=== PATIENT | female | born 1945 | race Caucasian/White ===

== ENCOUNTER 2016-12-14 11:41 | Emergency (ER) | payer MEDICARE, OTHER ==
[2016-12-14 11:45] VITALS: BP 164/71; PULSE 88; RESP 20; TEMP 99.1; O2SAT 99; BMI 44.9
--- NOTE | 2016-12-14 13:52 | US ---
PROCEDURE: Bilateral lower extremity venous duplex Doppler. HISTORY: b/l leg cramping/swelling COMPARISON: None available. TECHNIQUE: Bilateral common femoral, superficial femoral, popliteal and posterior tibial veins were evaluated. Flow was assessed with color Doppler, compressibility, assessment of phasic flow and augmentation response. FINDINGS: COMMON FEMORAL VEIN: Right CFV: Unremarkable. Left CFV: Unremarkable. SUPERFICIAL FEMORAL VEIN: Right SFV: Unremarkable. Left SFV: Unremarkable. POPLITEAL VEIN: Right Popliteal: Unremarkable. Left Popliteal: Unremarkable. POSTERIOR TIBIAL VEIN: Right PTV: Unremarkable. Left PTV: Unremarkable. OTHER FINDINGS: None. IMPRESSION: No evidence of deep venous thrombosis.
--- NOTE | 2016-12-14 13:59 | ED PDOC ---
Lower Extremity Pain/Injury Time Seen by Provider: 12/14/16 11:52 Chief Complaint (Nursing): Lower Extremity Problem/Injury Chief Complaint (Provider): feet heavy Additional Complaint(s): 71yo F in ED for eval of b/l feet heaviness x 1month states that she didn't tell her doctor because the ER is faster. denies SOB, dizziness, CP, cramping, pain to legs swelling to leg, discoloration to her leg. admits to hx of DM and was evaluated in the past for neuropathy - Risk Factors DVT Risk Factors: Pos: None Past Medical History Reviewed: Historical Data, Nursing Documentation, Vital Signs Vital Signs: Last Vital Signs Temp 99.1 F 12/14/16 11:44 Pulse 88 12/14/16 11:44 Resp 20 12/14/16 11:44 BP 164/71 H 12/14/16 11:44 Pulse Ox 99 12/14/16 11:44 - Medical History PMH: HTN, Hypercholesterolemia - Family History Family History: States: No Known Family Hx - Allergies Allergies/Adverse Reactions: Allergies Allergy/AdvReac Type Severity Reaction Status Date / Time No Known Allergies Allergy Verified 12/14/16 12:26 Wells Criteria for PE - Wells Criteria for Pulmonary Embolism Clinical Signs and Symptoms of DVT: No P.E is #1 Diagnosis, or Equally Likely: No Heart Rate >100: No Immobilization at least 3 days;Surgery previous 4 weeks: No Previous, objectively diagnosed PE or DVT: No Hemoptysis: No Malignancy w/treatment within 6 months, or palliative: No Total Score: 0 Review of Systems ROS Statement: Except As Marked, All Systems Reviewed And Found Negative Constitutional: Negative for: Fever, Chills Cardiovascular: Negative for: Chest Pain, Palpitations Musculoskeletal: Positive for: Leg Pain Physical Exam - Reviewed Nursing Documentation Reviewed: Yes Vital Signs Reviewed: Yes - Physical Exam Appears: Positive for: Well, Non-toxic, No Acute Distress Skin: Positive for: Normal Color, Warm, DRY Cardiovascular/Chest: Positive for: Regular Rate, Rhythm Respiratory: Positive for: CNT, Normal Breath Sounds Extremity: Positive for: Normal ROM, Other (normal sensation. ). Negative for: Tenderness, Pedal Edema, Calf Tenderness, Swelling Neurologic/Psych: Positive for: Alert, Oriented - ECG O2 Sat by Pulse Oximetry: 99 - CT Scan/US US Other Rad Studies (CT/US): Radiology Report Reviewed (negative for DVT) Medical Decision Making Medical Decision Making: pt with negative US-pt advised to have pmd evaluate for neuropathy and consider gabapentin. pt understands. d.c with stable vS and well appearing. Disposition - Clinical Impression Clinical Impression: Leg heaviness - Patient ED Disposition Is Patient to be Admitted: No Counseled Patient/Family Regarding: Studies Performed, Diagnosis, Need For Followup - Disposition Disposition: Routine/Home Disposition Time: 14:05 Condition: STABLE Instructions: Gabapentin (By mouth)
== END 2016-12-14 14:24 | disposition home or self-care (01) ==
LOC: H.ER 11:41
DX: R29.898 Other symptoms and signs involving the musculoskeletal system (principal); E11.9 Type 2 diabetes mellitus without complications

== ENCOUNTER 2017-01-15 11:48 | Observation (INO) | payer MEDICARE, OTHER ==
[2017-01-15 11:49] VITALS: BMI 44.9
--- NOTE | 2017-01-15 13:02 | RAD ---
PROCEDURE: CHEST RADIOGRAPH, 1 VIEW HISTORY: abnormal ekg COMPARISON: None available. FINDINGS: LUNGS: Clear. PLEURA: No pneumothorax or pleural fluid seen. CARDIOVASCULAR: Normal. OSSEOUS STRUCTURES: No significant abnormalities. VISUALIZED UPPER ABDOMEN: Normal. OTHER FINDINGS: None. IMPRESSION: No active disease.
[2017-01-15 13:27] LABS: BASO # 0.1 K/uL (0.0-0.2); EOS # 0.2 K/uL (0.0-0.7); HEMATOCRIT 35.9 % (34.0-47.0); LYMPH # 3.5 K/uL (1.0-4.3); LYMPH % 37.1 % (20.0-40.0); MEAN CELL VOLUME 82.4 fl (81.0-99.0); MEAN CORPUSCULAR HEMOGLOBIN 27.1 pg (27.0-31.0); MEAN CORPUSCULAR HGB CONC 32.9 g/dL (33.0-37.0); MEAN PLATELET VOLUME 8.2 fl (7.2-11.7); MONO # 0.6 K/uL (0.0-0.8); MONO % 5.9 % (0.0-10.0); NEUT # 5.1 K/uL (1.8-7.0); NRBC % 0.1 % (0.0-0.0); RED CELL DISTRIBUTION WIDTH 13.5 % (11.5-14.5); WHITE BLOOD COUNT 9.5 K/uL (4.8-10.8)
[2017-01-15 13:33] LABS: PARTIAL THROMBOPLASTIN TIME 33.1 Seconds (25.6-37.1)
[2017-01-15 13:35] LABS: BLOOD UREA NITROGEN 13 mg/dl (7-17); CALCIUM 9.2 mg/dL (8.4-10.2); CARBON DIOXIDE 27 mmol/L (22-30); CHLORIDE 104 mmol/L (98-107); GFR AFRICAN-AMERICAN > 60; GLUCOSE,RANDOM 133 mg/dL (65-105); POTASSIUM 3.2 MMOL/L (3.6-5.0); SODIUM 143 mmol/l (132-148)
[2017-01-15 14:05] LABS: THYROID STIMULATING HORMONE 2.15 mIU/ML (0.46-4.68)
--- NOTE | 2017-01-15 14:31 | ED PDOC ---
HPI: General Adult Time Seen by Provider: 01/15/17 12:00 Chief Complaint (Nursing): Palpitations Chief Complaint (Provider): Abnormal labs History Per: Patient History/Exam Limitations: no limitations Onset/Duration Of Symptoms: Mins Additional Complaint(s): Maylin Mar is a 71 year old female, with a past medical history of HTN, diabetes, and hypercholesterolemia, who was sent to the ED by staff during a scheduled colonoscopy prior to arrival. Patient was on monitor having a colonoscopy when they noticed to have irregular rate on monitor so she was sent here by staff. She denies any complaints early on and currently. She denies any leg swelling, cough, fever, nausea, vomit, diarrhea, chest pain, shortness of breath, or palpitations in the past and currently. No further medical complaints. PMD: Jean Carlos Mejia Past Medical History Reviewed: Historical Data, Nursing Documentation, Vital Signs Vital Signs: Last Vital Signs Temp 98.6 F 01/16/17 12:00 Pulse 71 01/16/17 12:00 Resp 18 01/16/17 12:00 BP 145/76 01/16/17 12:00 Pulse Ox 97 01/16/17 12:00 - Medical History PMH: Diabetes, HTN, Hypercholesterolemia Denies: Chronic Kidney Disease - Surgical History Surgical History: No Surg Hx - Family History Family History: States: Unknown Family Hx - Social History Current smoker - smoking cessation education provided: No Alcohol: None Drugs: Denies - Home Medications Home Medications: Ambulatory Orders Medication Instructions Recorded GlipiZIDE [Glipizide] 5 mg PO DAILY 01/15/17 Lisinopril/Hydrochlorothiazide 1 tab PO DAILY 01/15/17 [Lisinopril-Hctz 20-25 mg Tab] MetFORMIN [glucOPHAGE] 1,000 mg PO BID 01/15/17 Pravastatin Sodium [Pravachol] 20 mg PO DAILY 01/15/17 amLODIPine [Norvasc] 10 mg PO DAILY 01/15/17 - Allergies Allergies/Adverse Reactions: Allergies Allergy/AdvReac Type Severity Reaction Status Date / Time No Known Allergies Allergy Verified 12/14/16 12:26 Review of Systems ROS Statement: Except As Marked, All Systems Reviewed And Found Negative Constitutional: Negative for: Fever Cardiovascular: Negative for: Chest Pain, Palpitations Respiratory: Negative for: Cough, Shortness of Breath Gastrointestinal: Negative for: Nausea, Vomiting, Diarrhea Musculoskeletal: Negative for: Leg Pain (swelling) Physical Exam - Reviewed Nursing Documentation Reviewed: Yes Vital Signs Reviewed: Yes - Physical Exam Appears: Positive for: Well, Non-toxic, No Acute Distress Head Exam: Positive for: ATRAUMATIC, NORMAL INSPECTION, NORMOCEPHALIC Skin: Positive for: Normal Color, Warm, Dry Eye Exam: Positive for: EOMI, Normal appearance, PERRL Neck: Positive for: Normal, Painless ROM, Supple Cardiovascular/Chest: Negative for: Regular Rate, Rhythm (irregular cardiac rate ), Murmur Respiratory: Positive for: Normal Breath Sounds. Negative for: Respiratory Distress Gastrointestinal/Abdominal: Positive for: Normal Exam, Bowel Sounds, Soft. Negative for: Tenderness, Guarding, Rebound Back: Positive for: Normal Inspection. Negative for: Vertebral Tenderness Extremity: Positive for: Normal ROM. Negative for: Pedal Edema, Deformity, Swelling Neurologic/Psych: Positive for: Alert, Oriented. Negative for: Motor/Sensory Deficits - Laboratory Results Result Diagrams: 01/15/17 12:50 01/15/17 12:50 - ECG ECG Rhythm: Positive for: Atrial Fibrillation, Premature Ventricular Contraction (Atrial bygeminy), Nonspecific Changes (T wave). Negative for: Normal QRS (widened QRS complex. Left axis deviation.), Sinus Rhythm Rate: 78 O2 Sat by Pulse Oximetry: 95 (RA) Pulse Ox Interpretation: Normal Medical Decision Making Medical Decision Making: Initial Impression: arrhythmia. Differential includes: ACS,and CHF Initial Plan: --EKG --Echo comp w/ M Mode/C Flow/DOP --reevaluation 1430 Discussed the case with Dr Mandujano who reviewed EKG and agrees with observation. Scribe Attestation: Documented by Duane Montes, acting as a scribe for Abby Escalante MD Provider Scribe Attestation: All medical record entries made by the Scribe were at my direction and personally dictated by me. I have reviewed the chart and agree that the record accurately reflects my personal performance of the history, physical exam, medical decision making, and the department course for this patient. I have also personally directed, reviewed, and agree with the discharge instructions and disposition. Disposition - Clinical Impression Clinical Impression: Atrial bigeminy, Supraventricular arrhythmia - Patient ED Disposition Is Patient to be Admitted: Yes Discussed With : Mariaelena Rockwell Doctor Will See Patient In The: ED Counseled Patient/Family Regarding: Studies Performed, Diagnosis - Disposition Disposition Time: 14:30 Condition: FAIR - Pt Status Changed To: Hospital Disposition Of: Observation - POA Present On Arrival: None
--- NOTE | 2017-01-15 15:04 | CP.PCM.HP ---
History of Present Illness - History of Present Illness History of Present Illness: 71 y/o female with PMHx of DM, HTN, hyperlipidemia and arthritis seen and evaluated at bedside in ED after being sent by staff of the hospital. Patient states that she was here for her scheduled colonoscopy this afternoon where she was placed on a monitor and they noticed irregular rate so she was sent to the ED. Patient is currently resting comfortably in her bed and appears in NAD. Patient denies of any recent onset of chest pain, palpitations or shortness of breath. Patient denies of any F/N/V/C/diarrhea. Patient denies of any other complains at this time. PMHx: DM, HTN, Hyperlipidemia, Arthritis PSHx: C-sections, left breast procedure Allergies: N.K.D.A SHx: Stopped smoking 30 years ago x 3 cigarette a day, denies of EtOH or illicit drug usage FHx: Father: Heart condition, DM, hx of cancer, Mother: denies any history PMD: Jean Carlos Mejia Present on Admission - Present on Admission Any Indicators Present on Admission: Yes History of Uncontrolled Diabetes: Yes Review of Systems - Constitutional Constitutional: As Per HPI Past Patient History - Infectious Disease Hx of Infectious Diseases: None - Past Medical History & Family History Past Medical History?: Yes - Past Social History Smoking Status: Former Smoker Chewing Tobacco Use: No Cigar Use: No Alcohol: None Drugs: Denies - CARDIAC Hx Cardiac Disorders: No Hx Hypercholesterolemia: Yes Hx Hypertension: Yes - PULMONARY Hx Respiratory Disorders: No - NEUROLOGICAL Hx Neurological Disorder: No - HEENT Hx HEENT Problems: No - RENAL Hx Chronic Kidney Disease: No - ENDOCRINE/METABOLIC Hx Endocrine Disorders: Yes Hx Diabetes Mellitus Type 2: Yes - HEMATOLOGICAL/ONCOLOGICAL Hx Blood Disorders: No - INTEGUMENTARY Hx Dermatological Problems: No - MUSCULOSKELETAL/RHEUMATOLOGICAL Hx Musculoskeletal Disorders: Yes Hx Arthritis: Yes Hx Osteoarthritis: Yes - GASTROINTESTINAL Hx Gastrointestinal Disorders: No - GENITOURINARY/GYNECOLOGICAL Hx Genitourinary Disorders: No - PSYCHIATRIC Hx Psychophysiologic Disorder: No Hx Emotional Abuse: No Hx Physical Abuse: No Hx Substance Use: No - SURGICAL HISTORY Hx Surgeries: Yes Hx Section: Yes - ANESTHESIA Hx Anesthesia: Yes Hx Anesthesia Reactions: No Hx Malignant Hyperthermia: No Meds Allergies/Adverse Reactions: Allergies Allergy/AdvReac Type Severity Reaction Status Date / Time No Known Allergies Allergy Verified 12/14/16 12:26 Physical Exam - Constitutional Appears: Well, Non-toxic, No Acute Distress - Head Exam Head Exam: ATRAUMATIC - Eye Exam Eye Exam: Normal appearance - ENT Exam ENT Exam: Mucous Membranes Moist, Normal Exam - Neck Exam Neck exam: Positive for: Full Rom, Normal Inspection - Respiratory Exam Respiratory Exam: Clear to Auscultation Bilateral, NORMAL BREATHING PATTERN. absent: Rales, Rhonchi, Wheezes - Cardiovascular Exam Cardiovascular Exam: REGULAR RHYTHM, +S1, +S2. absent: Diastolic murmur, Systolic Murmur - GI/Abdominal Exam GI & Abdominal Exam: Normal Bowel Sounds, Soft - Rectal Exam Rectal Exam: Deferred - Extremities Exam Extremities exam: Positive for: normal inspection, pedal edema. Negative for: calf tenderness, joint swelling, tenderness Additional comments: +1 Pitting edema on distal medial leg bilaterally - Back Exam Back exam: FULL ROM, NORMAL INSPECTION. absent: tenderness - Neurological Exam Neurological exam: Alert, Oriented x3 - Psychiatric Exam Psychiatric exam: Normal Affect, Normal Mood - Skin Skin Exam: Intact, Normal Color, Warm Results - Vital Signs Recent Vital Signs: Last Vital Signs Temp 98.8 F 01/15/17 14:17 Pulse 78 01/15/17 14:49 Resp 16 01/15/17 14:17 BP 133/72 01/15/17 14:17 Pulse Ox 95 01/15/17 14:49 - Labs Result Diagrams: 01/15/17 12:50 01/15/17 12:50 Labs: Laboratory Results - last 24 hr 01/15/17 01/15/17 01/15/17 12:50 12:50 12:50 WBC 9.5 RBC 4.35 Hgb 11.8 L Hct 35.9 MCV 82.4 MCH 27.1 MCHC 32.9 L RDW 13.5 Plt Count 237 MPV 8.2 Neut % (Auto) 54.0 Lymph % (Auto) 37.1 [place] % (Auto) 5.9 Eos % (Auto) 2.0 Baso % (Auto) 1.0 Neut # 5.1 Lymph # 3.5 [place] # 0.6 Eos # 0.2 Baso # 0.1 PT 12.7 INR 1.1 APTT 33.1 Sodium 143 Potassium 3.2 L Chloride 104 Carbon Dioxide 27 Anion Gap 15 BUN 13 Creatinine 0.8 Est GFR ( Amer) > 60 Est GFR (Non-Af Amer) > 60 Random Glucose 133 H Calcium 9.2 Troponin I < 0.0120 NT-Pro-B Natriuret Pep 291 TSH 3rd Generation 2.15 Assessment & Plan - Assessment and Plan (Free Text) Assessment: 71 y/o female with PMHx of DM, HTN, hyperlipidemia, arthritis being admitted for atrial bigeminy Plan: 1). Atrial bigeminy - EKG (01/08): -Wide QRS rhythm, Left axis deviation, nonspecific intraventricular block, T wave abnormality-consider lateral ischemia - EKG (08/08): -Normal sinus rhythm with sinus arrhythmia, left anterior fascicular block, left ventricular hypertrophy with hyperpolarization abnormality - Echo (09/08): -Left ventricular EF: 60%. Mild left ventricular hypertrophy - Echo (01/08): -Pending - Troponin I WNL - Subsequent Troponin level - pending - Cardiology consult placed, recommendations are appreciated - Status : Acute 2). Diabetes - SSI - Diabetic diet - Status: Chronic 3). Hypertension - Amlodipine 10 mg PO qd - Lisinopril/HCTZ 20-25 mg PO qd - Status: Chronic 4). Hyperlipidemia - Pravastatin 20 mg PO qd - Status: Chronic 5). DVT PPx - Lovenox 40 mg qd - Status: Acute - Date & Time Date: 01/15/17 Time: 15:33
--- NOTE | 2017-01-15 15:05 | CARD ---
APPROVED REPORT EKG Measurement Heart [id number] <Conclusion> Sinus rhythm APC's Atrial Bigeminy Left anterior fascicular block Left ventricular hypertrophy
[2017-01-15] MEDS ORDERED: Dextrose 50% SYRINGE Inj (50 ml) IV PRN ×2 (15:59→16:08)
[2017-01-15] MEDS ORDERED: Glucagon Recombinant 1 mg Inj IM PRN ×2 (15:59→16:08)
[2017-01-15] MEDS: Pravastatin Sodium 20 MG TAB PO SCH (16:01)
[2017-01-15] MEDS: Insulin Regular 100 units/ml SC SCH ×2 (17:06→22:49)
--- NOTE | 2017-01-15 19:11 | CP.PCM.CON ---
History of Present Illness - History of Present Illness History of Present Illness: Pt admitted with irregular HB on monitor during colonoscopy Pt is asymptomatic EKG: NSR with occas APC"s at times in Bigeminy Troponins: neg Pt denies any cardaic Hx no chest pains/SOB/PEPE/palpitations Cardiac jeffries the pt is stable and may be discharged Past Patient History - Infectious Disease Hx of Infectious Diseases: None - Past Medical History & Family History Past Medical History?: Yes - Past Social History Smoking Status: Former Smoker - CARDIAC Hx Cardiac Disorders: Yes Hx Hypercholesterolemia: Yes Hx Hypertension: Yes - PULMONARY Hx Respiratory Disorders: No - NEUROLOGICAL Hx Neurological Disorder: No - HEENT Hx HEENT Problems: No - RENAL Hx Chronic Kidney Disease: No - ENDOCRINE/METABOLIC Hx Endocrine Disorders: Yes Hx Diabetes Mellitus Type 2: Yes - HEMATOLOGICAL/ONCOLOGICAL Hx Blood Disorders: No Hx Blood Transfusions: No - INTEGUMENTARY Hx Dermatological Problems: No - MUSCULOSKELETAL/RHEUMATOLOGICAL Hx Musculoskeletal Disorders: Yes Hx Arthritis: Yes Hx Falls: No Hx Osteoarthritis: Yes - GASTROINTESTINAL Hx Gastrointestinal Disorders: No - GENITOURINARY/GYNECOLOGICAL Hx Genitourinary Disorders: No - PSYCHIATRIC Hx Psychophysiologic Disorder: No Hx Emotional Abuse: No Hx Physical Abuse: No Hx Substance Use: No - SURGICAL HISTORY Hx Surgeries: Yes Hx Section: Yes - ANESTHESIA Hx Anesthesia: Yes Hx Anesthesia Reactions: No Hx Malignant Hyperthermia: No Meds Allergies/Adverse Reactions: Allergies Allergy/AdvReac Type Severity Reaction Status Date / Time No Known Allergies Allergy Verified 12/14/16 12:26 - Medications Medications: Current Medications Amlodipine Besylate (Norvasc) 10 mg PO DAILY [facility] Last Admin: 01/15/17 16:01 Dose: 10 mg Aspirin (Ecotrin) 81 mg PO DAILY [facility] Last Admin: 01/15/17 17:10 Dose: 81 mg Dextrose (Dextrose 50% Inj) 0 ml IV STAT PRN; Protocol PRN Reason: Hyglycemia Protocol Dextrose (Glutose 15) 0 gm PO ONCE PRN; Protocol PRN Reason: Hypoglycemia Protocol Enoxaparin Sodium (Lovenox) 40 mg SC DAILY [facility] PRN Reason: Protocol Glucagon (Glucagen Diagnostic Kit) 0 mg IM STAT PRN; Protocol PRN Reason: Hypoglycemia Protocol Hydrochlorothiazide (Hydrodiuril) 25 mg PO DAILY [facility] Insulin Human Regular (Humulin R) [address] [facility] PRN Reason: Protocol Last Admin: 01/15/17 17:06 Dose: Not Given Lisinopril (Zestril) 20 mg PO DAILY [facility] Pravastatin Sodium (Pravachol) 20 mg PO DAILY [facility] Last Admin: 01/15/17 16:01 Dose: 20 mg Physical Exam - Respiratory Exam Respiratory Exam: NORMAL BREATHING PATTERN - Cardiovascular Exam Cardiovascular Exam: REGULAR RHYTHM Results - Vital Signs Recent Vital Signs: Last Vital Signs Temp 98.8 F 01/15/17 16:45 Pulse 79 01/15/17 16:45 Resp 14 01/15/17 16:45 BP 174/79 H 01/15/17 16:45 Pulse Ox 98 01/15/17 16:45 - Labs Result Diagrams: 01/15/17 12:50 01/15/17 12:50 Labs: Laboratory Results - last 24 hr 01/15/17 01/15/17 01/15/17 12:50 12:50 12:50 WBC 9.5 RBC 4.35 Hgb 11.8 L Hct 35.9 MCV 82.4 MCH 27.1 MCHC 32.9 L RDW 13.5 Plt Count 237 MPV 8.2 Neut % (Auto) 54.0 Lymph % (Auto) 37.1 [place] % (Auto) 5.9 Eos % (Auto) 2.0 Baso % (Auto) 1.0 Neut # 5.1 Lymph # 3.5 [place] # 0.6 Eos # 0.2 Baso # 0.1 PT 12.7 INR 1.1 APTT 33.1 Sodium 143 Potassium 3.2 L Chloride 104 Carbon Dioxide 27 Anion Gap 15 BUN 13 Creatinine 0.8 Est GFR ( Amer) > 60 Est GFR (Non-Af Amer) > 60 Random Glucose 133 H Calcium 9.2 Troponin I < 0.0120 NT-Pro-B Natriuret Pep 291 TSH 3rd Generation 2.15 Assessment & Plan (1) APC (atrial premature contractions) Assessment and Plan: pt may be discharged at any time Status: Acute
[2017-01-15] MEDS ORDERED: Pneumococcal 23-Valent Vaccine IM ONE (20:11)
[2017-01-15] MEDS ORDERED: Influenza Vaccine 18yr & older 0.5 ML/45 MCG SYR IM ONE (20:11)
[2017-01-16 05:49] LABS: MAGNESIUM 1.7 MG/DL (1.6-2.3); PHOSPHOROUS 3.8 mg/dl (2.5-4.5)
[2017-01-16] MEDS: Insulin Regular 100 units/ml SC SCH ×2 (06:33→15:02)
--- NOTE | 2017-01-16 08:12 | CARD ---
APPROVED REPORT EXAM: Two-dimensional and M-mode echocardiogram with Doppler and color Doppler. Other Information Quality : AverageRhythm : NSR INDICATION Palpitations 2D DIMENSIONS IVSd1.52 (0.7-1.1cm)LVDd3.93 (3.9-5.9cm) LVOT Diameter2.32 (1.8-2.4cm)PWd1.30 (0.7-1.1cm) IVSs1.45 (0.8-1.2cm)LVDs3.12 (2.5-4.0cm) FS (%) 20.5 %PWs1.49 (0.8-1.2cm) M-Mode DIMENSIONS Left Atrium (MM)4.67 (2.5-4.0cm)IVSd1.31 (0.7-1.1cm) Aortic Root3.28 (2.2-3.7cm)LVDd5.56 (4.0-5.6cm) Aortic Cusp Exc.2.05 (1.5-2.0cm)PWd0.97 (0.7-1.1cm) IVSs1.58 cmFS (%) 35 % LVDs3.63 (2.0-3.8cm)PWs1.51 cm Mitral Valve MV E Kgzrqexs89.0cm/sMV DECEL [id number] A Nqrmipcn21.7cm/s MV YVJ65ajA/A ratio0.8MVA (PHT)2.60cm2 TDI Lateral E' Peak V5.54cm/sMedial E' Peak V4.32cm/sE/Lateral E'12.8 E/Medial E'16.4 LEFT VENTRICLE The left ventricle is normal size. There is normal left ventricular wall thickness. The left ventricular function is normal. The left ventricular ejection fraction is within the normal range. The Ejection Fraction is 55-60%. There is normal LV segmental wall motion. The left ventricular diastolic function is normal. No left ventricle thrombus noted on this study. There is no mass noted in the left ventricle. RIGHT VENTRICLE The right ventricle is normal size. There is normal right ventricular wall thickness. The right ventricular systolic function is normal. ATRIA The left atrium size is normal. The right atrium size is normal. The interatrial septum is intact with no evidence for an atrial septal defect. AORTIC VALVE The aortic valve is normal in structure. No aortic regurgitation is present. There is no aortic valvular stenosis. There is no aortic valvular vegetation. MITRAL VALVE The mitral valve is normal in structure. There is no evidence of mitral valve prolapse. There is no mitral valve stenosis. There is no mitral valve regurgitation noted. TRICUSPID VALVE The tricuspid valve is normal in structure. There is no tricuspid valve regurgitation noted. There is no tricuspid valve prolapse or vegetation. There is no tricuspid valve stenosis. PULMONIC VALVE The pulmonary valve is normal in structure. There is no pulmonic valvular regurgitation. There is no pulmonic valvular stenosis. GREAT VESSELS The aortic root is normal in size. The IVC is normal in size and collapses >50% with inspiration. PERICARDIAL EFFUSION The pericardium appears normal. There is no pleural effusion. <Conclusion> The left ventricle is normal size. The left ventricular function is normal. The left ventricular ejection fraction is within the normal range. The Ejection Fraction is 55-60%.
[2017-01-16] MEDS ORDERED: Patient's Own Med (Lisinopril/Hydrochlorothiazide [Lisinopril-Hctz 20-25 Mg Tab] 1 TAB) PO SCH (09:00)
[2017-01-16] MEDS ORDERED: Enoxaparin 40 mg Syringe SC SCH (09:00)
--- NOTE | 2017-01-16 09:09 | CP.PCM.PN ---
Subjective - Date & Time of Evaluation Date of Evaluation: 01/16/17 Time of Evaluation: 09:04 - Subjective Subjective: 71 y/o female seen and evaluated at bedside this morning. Patient is AAOx3 and is in NAD. Patient denies of any acute overnight events. Patient denies of any acute chest pain, palpitations or shortness of breath. Patient denies of any F/N /V/C/dizziness/headaches. Patient denies of any other complains at this time. Objective - Vital Signs/Intake and Output Vital Signs (last 24 hours): Temp Pulse Resp BP Pulse Ox 97.9 F 77 20 142/58 L 97 01/16/17 08:13 01/16/17 08:13 01/16/17 08:13 01/16/17 08:13 01/16/17 08:13 - Medications Medications: Current Medications Amlodipine Besylate (Norvasc) 10 mg PO DAILY [facility] Last Admin: 01/15/17 16:01 Dose: 10 mg Aspirin (Ecotrin) 81 mg PO DAILY [facility] Last Admin: 01/15/17 17:10 Dose: 81 mg Dextrose (Dextrose 50% Inj) 0 ml IV STAT PRN; Protocol PRN Reason: Hyglycemia Protocol Dextrose (Glutose 15) 0 gm PO ONCE PRN; Protocol PRN Reason: Hypoglycemia Protocol Enoxaparin Sodium (Lovenox) 40 mg SC DAILY [facility] PRN Reason: Protocol Glucagon (Glucagen Diagnostic Kit) 0 mg IM STAT PRN; Protocol PRN Reason: Hypoglycemia Protocol Hydrochlorothiazide (Hydrodiuril) 25 mg PO DAILY [facility] Insulin Human Regular (Humulin R) 0 units SC ACHS [facility] PRN Reason: Protocol Last Admin: 01/16/17 06:33 Dose: Not Given Lisinopril (Zestril) 20 mg PO DAILY [facility] Pravastatin Sodium (Pravachol) 20 mg PO DAILY [facility] Last Admin: 01/15/17 16:01 Dose: 20 mg - Labs Labs: 01/15/17 12:50 01/15/17 12:50 PT 12.7 Seconds (9.8-13.1) 01/15/17 12:50 INR 1.1 (0.9-1.2) 01/15/17 12:50 APTT 33.1 Seconds (25.6-37.1) 01/15/17 12:50 - Constitutional Appears: Well, Non-toxic, No Acute Distress - Head Exam Head Exam: ATRAUMATIC, NORMAL INSPECTION - Eye Exam Eye Exam: Normal appearance - ENT Exam ENT Exam: Mucous Membranes Moist, Normal Exam - Neck Exam Neck Exam: Full ROM, Normal Inspection - Respiratory Exam Respiratory Exam: Clear to Ausculation Bilateral, NORMAL BREATHING PATTERN. absent: Rales, Rhonchi, Wheezes - Cardiovascular Exam Cardiovascular Exam: REGULAR RHYTHM, +S1, +S2. absent: Diastolic murmur, Murmur - GI/Abdominal Exam GI & Abdominal Exam: Soft, Normal Bowel Sounds - Rectal Exam Rectal Exam: Deferred - Extremities Exam Extremities Exam: Full ROM, Normal Inspection, Pedal Edema. absent: Calf Tenderness, Joint Swelling, Tenderness Additional comments: +1 pitting edema - Back Exam Back Exam: Full ROM, NORMAL INSPECTION. absent: tenderness - Neurological Exam Neurological Exam: Alert, Awake, Oriented x3 - Psychiatric Exam Psychiatric exam: Normal Affect, Normal Mood - Skin Skin Exam: Intact, Normal Color, Warm Assessment and Plan - Assessment and Plan (Free Text) Assessment: 71 y/o female with PMHx of DM, HTN, hyperlipidemia, arthritis seen with atrial bigeminy Plan: 1). Atrial bigeminy - EKG (01/08): -Wide QRS rhythm, Left axis deviation, nonspecific intraventricular block, T wave abnormality-consider lateral ischemia - EKG (08/08): -Normal sinus rhythm with sinus arrhythmia, left anterior fascicular block, left ventricular hypertrophy with hyperpolarization abnormality - Echo (01/08): -EF 55-60%. Left ventricle is normal size and the function is normal - Echo (09/08): -Left ventricular EF: 60%. Mild left ventricular hypertrophy - Troponin I WNL -Subsequent Troponin level - WNL - Cardiology consult placed, recommendations are appreciated - NSR with occasional APC's, at times in bigeminy. - Patient is stable to be discharged as per cardio - Status : Acute 2). Diabetes - SSI - Diabetic diet - Status: Chronic 3). Hypertension - Amlodipine 10 mg PO qd - Lisinopril/HCTZ 20-25 mg PO qd - Status: Chronic 4). Hyperlipidemia - Pravastatin 20 mg PO qd - Status: Chronic 5). DVT PPx - Lovenox 40 mg qd - Ambulating - Status: Acute
[2017-01-16] MEDS: Pravastatin Sodium 20 MG TAB PO SCH (09:14)
--- NOTE | 2017-01-16 11:08 | CP.PCM.DIS ---
Provider - Provider Date of Admission: 01/15/17 14:32 Attending physician: Diane Rushing MD Time Spent in preparation of Discharge (in minutes): 20 Hospital Course - Lab Results Lab Results: Most Recent Lab Values WBC 9.5 K/uL (4.8-10.8) 01/15/17 12:50 RBC 4.35 Mil/uL (3.80-5.20) 01/15/17 12:50 Hgb 11.8 g/dL (12.0-16.0) L 01/15/17 12:50 Hct 35.9 % (34.0-47.0) 01/15/17 12:50 MCV 82.4 fl (81.0-99.0) 01/15/17 12:50 MCH 27.1 pg (27.0-31.0) 01/15/17 12:50 MCHC 32.9 g/dL (33.0-37.0) L 01/15/17 12:50 RDW 13.5 % (11.5-14.5) 01/15/17 12:50 Plt Count 237 K/uL (130-400) 01/15/17 12:50 MPV 8.2 fl (7.2-11.7) 01/15/17 12:50 Neut % (Auto) 54.0 % (50.0-75.0) 01/15/17 12:50 Lymph % (Auto) 37.1 % (20.0-40.0) 01/15/17 12:50 Kay % (Auto) 5.9 % (0.0-10.0) 01/15/17 12:50 Eos % (Auto) 2.0 % (0.0-4.0) 01/15/17 12:50 Baso % (Auto) 1.0 % (0.0-2.0) 01/15/17 12:50 Neut # 5.1 K/uL (1.8-7.0) 01/15/17 12:50 Lymph # 3.5 K/uL (1.0-4.3) 01/15/17 12:50 Kay # 0.6 K/uL (0.0-0.8) 01/15/17 12:50 Eos # 0.2 K/uL (0.0-0.7) 01/15/17 12:50 Baso # 0.1 K/uL (0.0-0.2) 01/15/17 12:50 PT 12.7 Seconds (9.8-13.1) 01/15/17 12:50 INR 1.1 (0.9-1.2) 01/15/17 12:50 APTT 33.1 Seconds (25.6-37.1) 01/15/17 12:50 Sodium 143 mmol/l (132-148) 01/15/17 12:50 Potassium 3.2 MMOL/L (3.6-5.0) L 01/15/17 12:50 Chloride 104 mmol/L (98-107) 01/15/17 12:50 Carbon Dioxide 27 mmol/L (22-30) 01/15/17 12:50 Anion Gap 15 (10-20) 01/15/17 12:50 BUN 13 mg/dl (7-17) 01/15/17 12:50 Creatinine 0.8 mg/dL (0.7-1.2) 01/15/17 12:50 Est GFR ( Amer) > 60 01/15/17 12:50 Est GFR (Non-Af Amer) > 60 01/15/17 12:50 POC Glucose (mg/dL) 146 mg/dL (65-110) H 01/16/17 05:13 Random Glucose 133 mg/dL (65-105) H 01/15/17 12:50 Calcium 9.2 mg/dL (8.4-10.2) 01/15/17 12:50 Phosphorus 3.8 mg/dl (2.5-4.5) 01/16/17 04:20 Magnesium 1.7 MG/DL (1.6-2.3) 01/16/17 04:20 Troponin I 0.0150 ng/mL (0.00-0.120) 01/15/17 20:47 NT-Pro-B Natriuret Pep 291 pg/ml (0-900) 01/15/17 12:50 TSH 3rd Generation 2.15 mIU/ML (0.46-4.68) 01/15/17 12:50 Urine Opiates Screen Negative (NEGATIVE) 01/16/17 06:00 Urine Methadone Screen Negative (NEGATIVE) 01/16/17 06:00 Ur Barbiturates Screen Negative (NEGATIVE) 01/16/17 06:00 Ur Phencyclidine Scrn Negative (NEGATIVE) 01/16/17 06:00 Ur Amphetamines Screen Negative (NEGATIVE) 01/16/17 06:00 U Benzodiazepines Scrn Negative (NEGATIVE) 01/16/17 06:00 U Oth Cocaine Metabols Negative (NEGATIVE) 01/16/17 06:00 U Cannabinoids Screen Negative (NEGATIVE) 01/16/17 06:00 - Hospital Course Hospital Course: 71 y/o female with PMHx of DM, HTN, hyperlipidemia, arthritis was admitted for non-symptomatic atrial bigeminy which was noticed during her colonoscopy. Patient was seen and evaluated by the sccm administrator; as per sccm administrator, the patient is stable to be discharged. - Date & Time of H&P Date of H&P: 01/16/17 Time of H&P: 11:08 Discharge Exam - Head Exam Head Exam: ATRAUMATIC, NORMAL INSPECTION - Eye Exam Eye Exam: Normal appearance - ENT Exam ENT Exam: Mucous Membranes Moist, Normal Exam - Neck Exam Neck exam: Full Rom, Normal Inspection - Respiratory Exam Respiratory Exam: Clear to PA & Lateral, NORMAL BREATHING PATTERN, UNREMARKABLE. absent: Rales, Rhonchi, Wheezes - Cardiovascular Exam Cardiovascular Exam: REGULAR RHYTHM, +S1, +S2. absent: Diastolic murmur, Systolic Murmur - GI/Abdominal Exam GI & Abdominal Exam: Normal Bowel Sounds, Soft, Unremarkable. absent: Distended , Rigid - Rectal Exam Rectal Exam: Deferred - Extremities Exam Extremities exam: full ROM, normal inspection, pedal edema - Back Exam Back exam: FULL ROM, NORMAL INSPECTION. absent: tenderness - Neurological Exam Neurological exam: Alert, Oriented x3 - Psychiatric Exam Psychiatric exam: Normal Affect, Normal Mood - Skin Skin Exam: Intact, Normal Color, Warm Discharge Plan - Follow Up Plan Condition: STABLE Disposition: HOME/ ROUTINE Additional Instructions: Cardiac Stress test as outpatient on 01/29/17 at 9:00 AM Continue to follow up as an outpatient with PMD Patient is asymptomatic and is stable to be discharged home with home medications
[2017-01-16 12:54] VITALS: BP 145/76; RESP 18; TEMP 98.6
[2017-01-16 15:33] VITALS: PULSE 78; O2SAT 95
== END 2017-01-16 17:20 | disposition home or self-care (01) ==
LOC: H.ER 11:48 → H.ERHOLD 14:32 → H.TEL 16:11
PROVIDERS: ADMIT Family Medicine Geriatric Medicine; ATTEND Family Medicine Geriatric Medicine
DX: R00.8 Other abnormalities of heart beat (principal); Z23 Encounter for immunization; I10 Essential (primary) hypertension; E11.9 Type 2 diabetes mellitus without complications; E78.00 Pure hypercholesterolemia, unspecified; E78.5 Hyperlipidemia, unspecified; M19.90 Unspecified osteoarthritis, unspecified site; Z87.891 Personal history of nicotine dependence
CPT/HCPCS: 36415; 71010; 80048; 82948; 83735; 83880; 84100; 84443; 84484; 85025; 85610; 85730; 90732; 93005; 93306; 99285; G0008; G0009; G0378; G0480; J1650; Q2035

== ENCOUNTER 2017-06-14 13:08 | Inpatient (IN) | payer MEDICARE, OTHER ==
[2017-06-14 13:09] VITALS: BMI 44.9
[2017-06-14] MEDS ORDERED: Sodium Chloride 0.9% 1,000 ML IV STA (13:59)
--- NOTE | 2017-06-14 13:59 | ED PDOC ---
HPI: General Adult Time Seen by Provider: 06/14/17 13:56 Chief Complaint (Nursing): GI Problem Chief Complaint (Provider): RECTAL BLEEDING History Per: Patient (71 Y/O FEMALE HERE FOR EVALUATION OF RECTAL BLEEDING NOTED TODAY. PATIENT IS ON XARELTA (UNSURE WHY). STATES SHE HAS NOT HAD COLONOSCOPY DUE TO CARDIOMEGALY NOTED ON CXR. DENIES ANY CHEST PAIN/ABDOMINAL PAIN AT THIS TIME.) Past Medical History Reviewed: Historical Data, Nursing Documentation, Vital Signs Vital Signs: Last Vital Signs Temp 98.2 F 06/14/17 13:21 Pulse 114 H 06/14/17 13:21 Resp 20 06/14/17 13:21 BP 145/68 06/14/17 13:21 Pulse Ox 100 06/14/17 13:59 - Medical History PMH: Arthritis, Diabetes, HTN, Hypercholesterolemia Denies: Chronic Kidney Disease - Family History Family History: States: Unknown Family Hx - Home Medications Home Medications: Ambulatory Orders Medication Instructions Recorded GlipiZIDE [Glipizide] 5 mg PO DAILY 01/15/17 Lisinopril/Hydrochlorothiazide 1 tab PO DAILY 01/15/17 [Lisinopril-Hctz 20-25 mg Tab] MetFORMIN [glucOPHAGE] 1,000 mg PO BID 01/15/17 Pravastatin Sodium [Pravachol] 20 mg PO DAILY 01/15/17 amLODIPine [Norvasc] 10 mg PO DAILY 01/15/17 - Allergies Allergies/Adverse Reactions: Allergies Allergy/AdvReac Type Severity Reaction Status Date / Time No Known Allergies Allergy Verified 12/14/16 12:26 Review of Systems ROS Statement: Except As Marked, All Systems Reviewed And Found Negative Gastrointestinal: Positive for: Hematochezia Physical Exam - Reviewed Nursing Documentation Reviewed: Yes Vital Signs Reviewed: Yes - Physical Exam Appears: Positive for: Well, Non-toxic, No Acute Distress Head Exam: Positive for: ATRAUMATIC, NORMAL INSPECTION, NORMOCEPHALIC Skin: Positive for: Normal Color, Warm, DRY Eye Exam: Positive for: EOMI, Normal appearance, PERRL ENT: Positive for: Normal ENT Inspection Neck: Positive for: Normal, Painless ROM Cardiovascular/Chest: Positive for: Regular Rate, Rhythm Respiratory: Positive for: CNT, Normal Breath Sounds Gastrointestinal/Abdominal: Positive for: Normal Exam, Bowel Sounds, Soft Back: Positive for: Normal Inspection Extremity: Positive for: Normal ROM Neurologic/Psych: Positive for: Alert, Oriented - Laboratory Results Result Diagrams: 06/14/17 14:46 06/14/17 14:46 - ECG O2 Sat by Pulse Oximetry: 100 - Progress ED Course And Treament: Orthostatics reviewed. pulse rate 91 to 117 from laying to standing ns 1 liter 500 ml per hour hgb noted 9.5. Last Hgb 01/2017 approx 11 d/w Family med resident. As patient is active bleeding, on xeralto, with signs of orthostatis will admit for observation. Disposition - Clinical Impression Clinical Impression: GI bleed - Patient ED Disposition Is Patient to be Admitted: Yes - Disposition Disposition Time: 16:56 Condition: FAIR Forms: [employer] (Vietnamese) - Pt Status Changed To: Hospital Disposition Of: Observation
[2017-06-14 14:55] LABS: BASO # 0.1 K/uL (0.0-0.2); BASO % 0.6 % (0.0-2.0); EOS # 0.1 K/uL (0.0-0.7); EOS % 1.5 % (0.0-4.0); LYMPH # 2.3 K/uL (1.0-4.3); LYMPH % 24.6 % (20.0-40.0); MEAN CELL VOLUME 84.5 fl (81.0-99.0); MEAN CORPUSCULAR HEMOGLOBIN 27.7 pg (27.0-31.0); MEAN CORPUSCULAR HGB CONC 32.7 g/dL (33.0-37.0); MEAN PLATELET VOLUME 8.1 fl (7.2-11.7); MONO # 0.5 K/uL (0.0-0.8); MONO % 5.1 % (0.0-10.0); NEUT # 6.3 K/uL (1.8-7.0); NEUT % 68.2 % (50.0-75.0); RBC 3.42 Mil/uL (3.80-5.20); RED CELL DISTRIBUTION WIDTH 14.2 % (11.5-14.5); WHITE BLOOD COUNT 9.3 K/uL (4.8-10.8)
[2017-06-14 15:05] LABS: INR 1.7 (0.9-1.2); PARTIAL THROMBOPLASTIN TIME 41.1 Seconds (25.6-37.1); PROTHROMBIN TIME 18.8 Seconds (9.8-13.1)
[2017-06-14 15:06] LABS: HEMOGLOBIN 9.5 g/dL (12.0-16.0)
[2017-06-14 15:11] LABS: ALB/GLOB RATIO 1.1 (1.0-2.1); ALBUMIN 3.8 g/dL (3.5-5.0); CALCIUM 9.7 mg/dL (8.4-10.2)
--- NOTE | 2017-06-14 17:05 | CP.PCM.HP ---
History of Present Illness - History of Present Illness History of Present Illness: CC: Rectal Bleed Pt is a 71 y/o female with PMHx of Hemorrhoids and Afibb recently started Zyrelto (2 weeks ago) presents to ED with rectal bleed associated with diarrhea x 5 days. She describes blood as bright red with occasional clots, cannot quantify the amount. Has also had multiple soft/watery bowel movements per day for the past week as well. She reports that she has been feeling lightheaded upon standing, denies falls. Denies abdominal pain, nausea, vomiting, constipation, fever, chills, weight loss. Never had colonoscopy but attempted to get one last fall but had a cardiac arrhythmia noted on an EKG prior to the procedure which caused the procedure to be cancelled, never followed up with GI to complete the procedure. Denies chest pain, sob, palpitations. PMD: [facility]: Dr. Marie, Seen 2 weeks ago and started on Xarelto for Afibb Medical Hx: DM, HTN, Hyperlipidemia, Arthritis, Afibb. Denies Hx of GI bleeds Medications: Xarelto 20mg, Metroprolol 25mg, Amlodipine 10mg, Pravastatin 20mg, Lisinopril 20mg, Metformin 1000mg, Amlodpine 10mg, Cilastazole NKDA Social Hx: Former smoker, 30+pack years, Denies heavy alcohol use Lives with son Vitals: HR 101, BP 164/71, afebrile, O2 sat 99 on rm air Orthostatics: Supine BP 127/57 HR 91, Sitting BP 120/57, HR 99, Standing 114/58 , HR 115 Physical Exam: + Hemorrhoids (reducible, nontender, Grade III), +dede blood on tissue Labs/Imaging/Tests: EKG CBC CMP Coags Type and Screen ED Intervention: Nacl 500ml bolus Code Status: Full Code Present on Admission - Present on Admission Any Indicators Present on Admission: No History of DVT/PE: No History of Uncontrolled Diabetes: No Urinary Catheter: No Decubitus Ulcer Present: No Decubitus Ulcer Stage: Unstageable Past Patient History - Infectious Disease Hx of Infectious Diseases: None - Past Medical History & Family History Past Medical History?: Yes - Past Social History Smoking Status: Former Smoker - CARDIAC Hx Hypercholesterolemia: Yes Hx Hypertension: Yes - PULMONARY Hx Respiratory Disorders: No - NEUROLOGICAL Hx Neurological Disorder: No - HEENT Hx HEENT Problems: No - RENAL Hx Chronic Kidney Disease: No - ENDOCRINE/METABOLIC Hx Endocrine Disorders: Yes Hx Diabetes Mellitus Type 2: Yes - HEMATOLOGICAL/ONCOLOGICAL Hx Blood Disorders: No Hx Blood Transfusions: No - INTEGUMENTARY Hx Dermatological Problems: No - MUSCULOSKELETAL/RHEUMATOLOGICAL Hx Arthritis: Yes - GASTROINTESTINAL Hx Gastrointestinal Disorders: No - GENITOURINARY/GYNECOLOGICAL Hx Genitourinary Disorders: No - PSYCHIATRIC Hx Psychophysiologic Disorder: No Hx Emotional Abuse: No Hx Physical Abuse: No Hx Substance Use: No - SURGICAL HISTORY Hx Surgeries: Yes Hx Section: Yes - ANESTHESIA Hx Anesthesia: Yes Hx Anesthesia Reactions: No Hx Malignant Hyperthermia: No Meds Allergies/Adverse Reactions: Allergies Allergy/AdvReac Type Severity Reaction Status Date / Time No Known Allergies Allergy Verified 12/14/16 12:26 Physical Exam - Constitutional Appears: Well, Non-toxic, No Acute Distress - Head Exam Head Exam: NORMAL INSPECTION - Eye Exam Eye Exam: Normal appearance - ENT Exam ENT Exam: Mucous Membranes Moist - Respiratory Exam Respiratory Exam: Clear to Auscultation Bilateral. absent: Rales, Wheezes - Cardiovascular Exam Cardiovascular Exam: REGULAR RHYTHM, +S1, +S2. absent: Systolic Murmur - GI/Abdominal Exam GI & Abdominal Exam: Soft. absent: Distended, Tenderness - Rectal Exam Additional comments: Bloody tissue seen between buttocks, + hemorroids non tender, prolapsed but reducible, non thrombosed, not bleeding, no masses felt on LAURA - Extremities Exam Extremities exam: Negative for: pedal edema - Neurological Exam Neurological exam: Alert, Oriented x3 - Psychiatric Exam Psychiatric exam: Normal Affect - Skin Skin Exam: Normal Color Results - Vital Signs Recent Vital Signs: Last Vital Signs Temp 98.2 F 06/14/17 13:21 Pulse 114 H 06/14/17 13:21 Resp 20 06/14/17 13:21 BP 145/68 06/14/17 13:21 Pulse Ox 100 06/14/17 16:56 - Labs Result Diagrams: 06/14/17 14:46 06/14/17 14:46 Labs: Laboratory Results - last 24 hr 06/14/17 06/14/17 06/14/17 12:20 14:26 14:30 WBC RBC Hgb Hct MCV MCH MCHC RDW Plt Count MPV Neut % (Auto) Lymph % (Auto) Armstrong % (Auto) Eos % (Auto) Baso % (Auto) Neut # (Auto) Lymph # (Auto) Armstrong # (Auto) Eos # (Auto) Baso # (Auto) PT INR APTT Sodium Potassium Chloride Carbon Dioxide Anion Gap BUN Creatinine Est GFR ( Amer) Est GFR (Non-Af Amer) POC Glucose (mg/dL) 185 H Random Glucose Calcium Total Bilirubin AST ALT Alkaline Phosphatase Total Protein Albumin Globulin Albumin/Globulin Ratio Stool Occult Blood Negative Blood Type O POSITIVE Blood Type Confirm Antibody Screen Negative BBK History Checked No verified bt 06/14/17 06/14/17 06/14/17 14:46 14:46 14:46 WBC 9.3 RBC 3.42 L Hgb 9.5 L D Hct 28.9 L MCV 84.5 D MCH 27.7 MCHC 32.7 L RDW 14.2 Plt Count 301 MPV 8.1 Neut % (Auto) 68.2 Lymph % (Auto) 24.6 Armstrong % (Auto) 5.1 Eos % (Auto) 1.5 Baso % (Auto) 0.6 Neut # (Auto) 6.3 Lymph # (Auto) 2.3 Armstrong # (Auto) 0.5 Eos # (Auto) 0.1 Baso # (Auto) 0.1 PT 18.8 H INR 1.7 H APTT 41.1 H Sodium 139 Potassium 3.8 Chloride 98 Carbon Dioxide 26 Anion Gap 19 BUN 20 H Creatinine 1.1 Est GFR ( Amer) 59 Est GFR (Non-Af Amer) 49 POC Glucose (mg/dL) Random Glucose 195 H Calcium 9.7 Total Bilirubin 0.7 AST 18 ALT 26 Alkaline Phosphatase 56 Total Protein 7.2 Albumin 3.8 Globulin 3.4 Albumin/Globulin Ratio 1.1 Stool Occult Blood Blood Type Blood Type Confirm Antibody Screen BBK History Checked 06/14/17 14:51 WBC RBC Hgb Hct MCV MCH MCHC RDW Plt Count MPV Neut % (Auto) Lymph % (Auto) Armstrong % (Auto) Eos % (Auto) Baso % (Auto) Neut # (Auto) Lymph # (Auto) Armstrong # (Auto) Eos # (Auto) Baso # (Auto) PT INR APTT Sodium Potassium Chloride Carbon Dioxide Anion Gap BUN Creatinine Est GFR ( Amer) Est GFR (Non-Af Amer) POC Glucose (mg/dL) Random Glucose Calcium Total Bilirubin AST ALT Alkaline Phosphatase Total Protein Albumin Globulin Albumin/Globulin Ratio Stool Occult Blood Blood Type Blood Type Confirm O POSITIVE Antibody Screen BBK History Checked Assessment & Plan - Assessment and Plan (Free Text) Assessment: Pt is a 71 y/o female with PMHx of Hemorrhoids and Afibb recently started Zyrelto and 2 weeks ago presenting to ED with active rectal bleed associated with diarrhea, admitted for observation. #Rectal Bleed -Hemoglobin 9 (11.8 in 01/2018) -Orthostatics: -GI Consult -Type and Screen, Consented for blood -GI consulted -F/u cbc in the am #Afibb -EKG normal sinus rythm in ED -Echo wnl 12/2017 #HTN -normotensive -c/w home meds #DM -c/w home meds #DVT -SCD -No lonenox given active GI bleed #Full Code
[2017-06-14] MEDS ORDERED: Sodium Chloride 0.9% 250 ML IV ONE (18:07)
[2017-06-14] MEDS: Pantoprazole 40 MG in Sodium Chloride 0.9% 100 ML IVPB SCH ×2 (19:05→23:46)
[2017-06-14] MEDS: Sodium Chloride 0.9% 1,000 ML IV SCH (23:46)
[2017-06-15] MEDS: Pantoprazole 40 MG in Sodium Chloride 0.9% 100 ML IVPB SCH ×4 (05:52→20:10)
[2017-06-15] MEDS: Sodium Chloride 0.9% 1,000 ML IV SCH ×2 (05:54→17:01)
[2017-06-15] MEDS: Pravastatin Sodium 20 MG TAB PO SCH (08:48)
[2017-06-15] MEDS ORDERED: Patient's Own Med (Lisinopril/Hydrochlorothiazide [Lisinopril-Hctz 20-25 Mg Tab] 1 TAB) PO SCH (09:00)
[2017-06-15] MEDS ORDERED: Dextrose 50% SYRINGE Inj (50 ml) IV PRN (09:16)
[2017-06-15] MEDS ORDERED: Glucagon Recombinant 1 mg Inj IM PRN (09:16)
--- NOTE | 2017-06-15 09:25 | CP.PCM.PN ---
Subjective - Date & Time of Evaluation Date of Evaluation: 06/15/17 Time of Evaluation: 11:10 - Subjective Subjective: Pt seen and evaluated at bedside; had two episodes of bloody diarrhea this morning. Otherwise has no new complaints. Daughter was at bedside. Objective - Vital Signs/Intake and Output Vital Signs (last 24 hours): Temp Pulse Resp BP Pulse Ox 98.5 F 76 18 152/78 H 98 06/15/17 08:09 06/15/17 08:47 06/15/17 08:09 06/15/17 08:47 06/15/17 08:09 - Medications Medications: Current Medications Amlodipine Besylate (Norvasc) 10 mg PO DAILY [facility] Last Admin: 06/15/17 08:47 Dose: 10 mg Dextrose (Dextrose 50% Inj) 0 ml IV STAT PRN; Protocol PRN Reason: Hypoglycemia Protocol Dextrose (Glutose 15) 0 gm PO ONCE PRN; Protocol PRN Reason: Hypoglycemia Protocol Glipizide (Glucotrol) 5 mg PO DAILY [facility] Last Admin: 06/15/17 08:47 Dose: 5 mg Glucagon (Glucagen Diagnostic Kit) 0 mg IM STAT PRN; Protocol PRN Reason: Hypoglycemia Protocol Hydrochlorothiazide (Hydrodiuril) 25 mg PO DAILY [facility] Last Admin: 06/15/17 08:47 Dose: 25 mg Pantoprazole Sodium 40 mg/ (Sodium Chloride) 100 mls @ 20 mls/hr IVPB Q5H [facility] Last Admin: 06/15/17 08:48 Dose: 20 mls/hr Sodium Chloride (Sodium Chloride 0.9%) 1,000 mls @ 100 mls/hr IV .Q10H [facility] Stop: 06/15/17 18:07 Last Admin: 06/15/17 05:54 Dose: 100 mls/hr Insulin Human Regular (Humulin R) 0 units SC ACHS [facility] PRN Reason: Protocol Lisinopril (Zestril) 20 mg PO DAILY [facility] Last Admin: 06/15/17 08:47 Dose: 20 mg Metformin HCl (Glucophage) 1,000 mg PO BID [facility] Last Admin: 06/15/17 08:47 Dose: 1,000 mg Pravastatin Sodium (Pravachol) 20 mg PO DAILY [facility] Last Admin: 06/15/17 08:48 Dose: 20 mg - Labs Labs: 06/14/17 14:46 06/14/17 14:46 PT 18.8 Seconds (9.8-13.1) H 06/14/17 14:46 INR 1.7 (0.9-1.2) H 06/14/17 14:46 APTT 41.1 Seconds (25.6-37.1) H 06/14/17 14:46 Assessment and Plan - Assessment and Plan (Free Text) Assessment: 71 yo F with PMHx of DM2, HTN, A-fib, hemorrhoids; recently started on Xarelto, admitted with active rectal bleed associated with diarrhea. Plan: #Rectal Bleed - Hemoglobin 9.6 today; no acute decrease from admission - GI Consult - Dr. Sue - Type and screen, consented for blood transfusion - Protonix - 40 mg IVPB Q5 - F/u CBC #Atrial Fibrillation -EKG normal sinus rhythm in ED -Echo wnl 12/2017 #Hypertension - Continue with home meds - Monitor BP #Diabetes Mellitus - Continue with home meds - Hypoglycemia protocol and insulin coverage scale - Diabetic diet #DVT prophylaxis -SCD -No lonenox given active GI bleed
--- NOTE | 2017-06-15 09:42 | CARD ---
APPROVED REPORT EKG Measurement Heart [id number] <Conclusion> Normal sinus rhythm Left anterior fascicular block ST & T wave abnormality, consider lateral ischemia Abnormal ECG
[2017-06-15 10:08] LABS: HEMOGLOBIN 9.6 g/dL (12.0-16.0); MEAN CELL VOLUME 85.3 fl (81.0-99.0); MEAN CORPUSCULAR HEMOGLOBIN 27.4 pg (27.0-31.0); MEAN CORPUSCULAR HGB CONC 32.1 g/dL (33.0-37.0); RBC 3.5 Mil/uL (3.80-5.20)
[2017-06-15 11:20] LABS: INR 1.2 (0.9-1.2); PARTIAL THROMBOPLASTIN TIME 27.2 Seconds (25.6-37.1); PROTHROMBIN TIME 12.9 Seconds (9.8-13.1)
[2017-06-15] MEDS: Insulin Regular 100 units/ml SC SCH ×3 (13:14→22:16)
--- NOTE | 2017-06-16 00:04 | CP.PCM.CON ---
History of Present Illness - History of Present Illness History of Present Illness: 71 yo female admitted after feeling dizzy and lightheaded. She has been experiencing rectel bleeding for approximately 5 days with mostly bright red blood. According to her daughter she was started on Xarelto 2 weeks ago do to concerns about possibly diminished circulation in her lower extremities. The family showed me a picture of a BM earlier today showing a large amount of blood in toilet mostly bright red. Review of Systems - Constitutional Constitutional: absent: Chills - EENT Eyes: absent: Blurred Vision Nose/Mouth/Throat: absent: Epistaxis - Cardiovascular Cardiovascular: absent: Chest Pain - Respiratory Respiratory: absent: Cough - Gastrointestinal Gastrointestinal: absent: Abdominal Pain Past Patient History - Infectious Disease Hx of Infectious Diseases: None - Past Medical History & Family History Past Medical History?: Yes - Past Social History Smoking Status: Former Smoker - CARDIAC Hx Cardiac Disorders: Yes Hx Atrial Fibrillation: Yes Hx Hypercholesterolemia: Yes Hx Hypertension: Yes - PULMONARY Hx Respiratory Disorders: Yes Other/Comment: Ex smoker - NEUROLOGICAL Hx Neurological Disorder: No - HEENT Hx HEENT Problems: Yes - RENAL Hx Chronic Kidney Disease: No - ENDOCRINE/METABOLIC Hx Endocrine Disorders: Yes Hx Diabetes Mellitus Type 2: Yes - HEMATOLOGICAL/ONCOLOGICAL Hx Blood Disorders: No Hx AIDS: No Hx Human Immunodeficiency Virus (HIV): No - INTEGUMENTARY Hx Dermatological Problems: No - MUSCULOSKELETAL/RHEUMATOLOGICAL Hx Musculoskeletal Disorders: Yes Hx Arthritis: Yes Hx Falls: No - GASTROINTESTINAL Hx Gastrointestinal Disorders: Yes Hx Hemorrhoids: Yes Other/Comment: GI bleed - GENITOURINARY/GYNECOLOGICAL Hx Genitourinary Disorders: No - PSYCHIATRIC Hx Psychophysiologic Disorder: No Hx Substance Use: No - SURGICAL HISTORY Hx Surgeries: Yes Hx Section: Yes - ANESTHESIA Hx Anesthesia: Yes Hx Anesthesia Reactions: No Hx Malignant Hyperthermia: No Meds Allergies/Adverse Reactions: Allergies Allergy/AdvReac Type Severity Reaction Status Date / Time No Known Allergies Allergy Verified 12/14/16 12:26 - Medications Medications: Current Medications Amlodipine Besylate (Norvasc) 10 mg PO DAILY [facility] Last Admin: 06/15/17 08:47 Dose: 10 mg Dextrose (Dextrose 50% Inj) 0 ml IV STAT PRN; Protocol PRN Reason: Hypoglycemia Protocol Dextrose (Glutose 15) 0 gm PO ONCE PRN; Protocol PRN Reason: Hypoglycemia Protocol Glipizide (Glucotrol) 5 mg PO DAILY [facility] Last Admin: 06/15/17 08:47 Dose: 5 mg Glucagon (Glucagen Diagnostic Kit) 0 mg IM STAT PRN; Protocol PRN Reason: Hypoglycemia Protocol Hydrochlorothiazide (Hydrodiuril) 25 mg PO DAILY [facility] Last Admin: 06/15/17 08:47 Dose: 25 mg Pantoprazole Sodium 40 mg/ (Sodium Chloride) 100 mls @ 20 mls/hr IVPB Q5H [facility] Last Admin: 06/15/17 20:10 Dose: 20 mls/hr Insulin Human Regular (Humulin R) 0 units SC ACHS OZ PRN Reason: Protocol Last Admin: 06/15/17 22:16 Dose: Not Given Lisinopril (Zestril) 20 mg PO DAILY [facility] Last Admin: 06/15/17 08:47 Dose: 20 mg Metformin HCl (Glucophage) 1,000 mg PO BID [facility] Last Admin: 06/15/17 17:02 Dose: 1,000 mg Pravastatin Sodium (Pravachol) 20 mg PO DAILY [facility] Last Admin: 06/15/17 08:48 Dose: 20 mg Physical Exam - Constitutional Appears: No Acute Distress - Head Exam Head Exam: ATRAUMATIC - Eye Exam Eye Exam: Normal appearance - ENT Exam ENT Exam: Mucous Membranes Moist - Neck Exam Neck exam: Positive for: Normal Inspection - Respiratory Exam Respiratory Exam: Clear to Auscultation Bilateral, NORMAL BREATHING PATTERN - Cardiovascular Exam Cardiovascular Exam: REGULAR RHYTHM, +S1, +S2 - GI/Abdominal Exam GI & Abdominal Exam: Normal Bowel Sounds, Soft. absent: Tenderness Results - Vital Signs Recent Vital Signs: Last Vital Signs Temp 98.9 F 06/15/17 19:20 Pulse 97 H 06/15/17 19:20 Resp 20 06/15/17 19:20 BP 181/84 H 06/15/17 19:20 Pulse Ox 97 06/15/17 19:20 - Labs Result Diagrams: 06/15/17 09:55 06/14/17 14:46 Labs: Laboratory Results - last 24 hr 06/15/17 06/15/17 06/15/17 05:22 09:55 10:00 WBC 12.0 H RBC 3.50 L Hgb 9.6 L Hct 29.9 L MCV 85.3 MCH 27.4 MCHC 32.1 L RDW 14.0 Plt Count 313 PT 12.9 D INR 1.2 D APTT 27.2 D POC Glucose (mg/dL) 102 06/15/17 06/15/17 06/15/17 11:13 16:06 21:28 WBC RBC Hgb Hct MCV MCH MCHC RDW Plt Count PT INR APTT POC Glucose (mg/dL) 147 H 142 H 127 H Assessment & Plan (1) GI bleed Assessment and Plan: GI bleeding while on anticoagulants. Most likely lower GI tract origin because bright blood seen and patient not hypotensive. Colonoscopy Saturday to evaluate cause of bleed. Ddx includes hemorrhoids, diverticulosis, polyp and AVM.. Status: Acute
[2017-06-16] MEDS: Pantoprazole 40 MG in Sodium Chloride 0.9% 100 ML IVPB SCH ×2 (00:05→05:23)
[2017-06-16] MEDS: Insulin Regular 100 units/ml SC SCH ×4 (06:57→22:26)
[2017-06-16 07:47] LABS: HEMOGLOBIN 9.8 g/dL (12.0-16.0); MEAN CELL VOLUME 84.1 fl (81.0-99.0); MEAN CORPUSCULAR HEMOGLOBIN 28.4 pg (27.0-31.0); MEAN CORPUSCULAR HGB CONC 33.7 g/dL (33.0-37.0); RBC 3.46 Mil/uL (3.80-5.20); RED CELL DISTRIBUTION WIDTH 14.2 % (11.5-14.5); WHITE BLOOD COUNT 11.8 K/uL (4.8-10.8)
[2017-06-16 08:58] LABS: HEPATITIS B SURFACE AG Negative (NEGATIVE)
[2017-06-16 09:15] LABS: HEPATITIS C ANTIBODY NEGATIVE (NEGATIVE)
--- NOTE | 2017-06-16 10:46 | CP.PCM.PN ---
Subjective - Date & Time of Evaluation Date of Evaluation: 06/16/17 Time of Evaluation: 09:00 - Subjective Subjective: No acute overnight events. Comfortable this am. No complaints. 1 rectal bleeding episode- minimal blood. Discussed plan with patient. Objective - Vital Signs/Intake and Output Vital Signs (last 24 hours): Temp Pulse Resp BP Pulse Ox 98.4 F 76 18 149/58 L 96 06/16/17 08:40 06/16/17 08:51 06/16/17 08:40 06/16/17 08:51 06/16/17 08:40 - Medications Medications: Current Medications Amlodipine Besylate (Norvasc) 10 mg PO DAILY [facility] Last Admin: 06/16/17 08:51 Dose: 10 mg Bisacodyl (Dulcolax) 20 mg PO ONCE ONE Stop: 06/16/17 16:01 Dextrose (Dextrose 50% Inj) 0 ml IV STAT PRN; Protocol PRN Reason: Hypoglycemia Protocol Dextrose (Glutose 15) 0 gm PO ONCE PRN; Protocol PRN Reason: Hypoglycemia Protocol Glipizide (Glucotrol) 5 mg PO DAILY [facility] Last Admin: 06/16/17 08:51 Dose: 5 mg Glucagon (Glucagen Diagnostic Kit) 0 mg IM STAT PRN; Protocol PRN Reason: Hypoglycemia Protocol Hydrochlorothiazide (Hydrodiuril) 25 mg PO DAILY [facility] Last Admin: 06/16/17 08:51 Dose: 25 mg Pantoprazole Sodium 40 mg/ (Sodium Chloride) 100 mls @ 20 mls/hr IVPB Q5H [facility] Last Admin: 06/16/17 05:23 Dose: 20 mls/hr Insulin Human Regular (Humulin R) 0 units SC ACHS OZ PRN Reason: Protocol Last Admin: 06/16/17 06:57 Dose: Not Given Lisinopril (Zestril) 20 mg PO DAILY [facility] Last Admin: 06/16/17 08:51 Dose: 20 mg Magnesium Citrate (Citrate Of Mag) 300 ml PO ONCE ONE Stop: 06/16/17 13:01 Magnesium Citrate (Citrate Of Mag) 300 ml PO ONCE ONE Stop: 06/16/17 20:01 Metformin HCl (Glucophage) 1,000 mg PO BID [facility] Last Admin: 06/16/17 08:51 Dose: 1,000 mg Pravastatin Sodium (Pravachol) 20 mg PO DAILY [facility] Last Admin: 06/15/17 08:48 Dose: 20 mg - Labs Labs: 06/16/17 07:00 06/14/17 14:46 PT 12.9 Seconds (9.8-13.1) D 06/15/17 10:00 INR 1.2 (0.9-1.2) D 06/15/17 10:00 APTT 27.2 Seconds (25.6-37.1) D 06/15/17 10:00 - Constitutional Appears: Well, Non-toxic, No Acute Distress - Head Exam Head Exam: NORMAL INSPECTION - Eye Exam Eye Exam: Normal appearance - ENT Exam ENT Exam: Mucous Membranes Moist - Respiratory Exam Respiratory Exam: Clear to Ausculation Bilateral. absent: Rales, Wheezes - Cardiovascular Exam Cardiovascular Exam: REGULAR RHYTHM, +S1, +S2. absent: Murmur - GI/Abdominal Exam GI & Abdominal Exam: Soft. absent: Distended, Tenderness - Extremities Exam Extremities Exam: Normal Inspection - Neurological Exam Neurological Exam: Alert, Awake, Oriented x3 - Psychiatric Exam Psychiatric exam: Normal Affect - Skin Skin Exam: Normal Color Assessment and Plan - Assessment and Plan (Free Text) Assessment: 71 yo F with PMHx of DM2, HTN, A-fib, hemorrhoids; recently started on Xarelto, admitted with active rectal bleed associated with diarrhea. For Colonoscopy tomorrow. Clear liquids now. NPO at midnight. Plan: #Rectal Bleed - Hemoglobin 9.8 today, BP stable - GI Consult - Dr. Sue - Type and screen, consented for blood transfusion - Protonix - 40 mg IVPB Q5 - F/u CBC -Still has Minimal bleeding with BM -Plan for colonoscopy tomorrow, Bisacodyl #Atrial Fibrillation -EKG normal sinus rhythm in ED -Echo wnl 12/2017 -Left message for Engraver Set Up Operator, Dr. Marie, will attempt to reach again. #Hypertension - Continue with home meds - Monitor BP #Diabetes Mellitus - Continue with home meds - Hypoglycemia protocol and insulin coverage scale - Diabetic diet #DVT prophylaxis -SCD -No lonenox given active GI bleed -Liquid diet for now, NPO w/ meds after midnight
[2017-06-16] MEDS ORDERED: Magnesium Citrate Oral SOL (300 ml) PO ONE ×2 (13:00→20:00)
[2017-06-16] MEDS: Pravastatin Sodium 20 MG TAB PO SCH (13:13)
[2017-06-16] MEDS ORDERED: Bisacodyl 5mg EC Tab PO ONE (16:00)
--- NOTE | 2017-06-16 19:23 | CP.PCM.PN ---
Subjective - Date & Time of Evaluation Date of Evaluation: 06/16/17 Time of Evaluation: 19:20 - Subjective Subjective: No bleeding since yesterday. Patient in good spirits and tolerating prep. Objective - Vital Signs/Intake and Output Vital Signs (last 24 hours): Temp Pulse Resp BP Pulse Ox 98.3 F 76 20 163/77 H 99 06/16/17 16:14 06/16/17 16:14 06/16/17 16:14 06/16/17 16:14 06/16/17 16:14 - Medications Medications: Current Medications Amlodipine Besylate (Norvasc) 10 mg PO DAILY [facility] Last Admin: 06/16/17 08:51 Dose: 10 mg Dextrose (Dextrose 50% Inj) 0 ml IV STAT PRN; Protocol PRN Reason: Hypoglycemia Protocol Dextrose (Glutose 15) 0 gm PO ONCE PRN; Protocol PRN Reason: Hypoglycemia Protocol Glipizide (Glucotrol) 5 mg PO DAILY [facility] Last Admin: 06/16/17 08:51 Dose: 5 mg Glucagon (Glucagen Diagnostic Kit) 0 mg IM STAT PRN; Protocol PRN Reason: Hypoglycemia Protocol Hydrochlorothiazide (Hydrodiuril) 25 mg PO DAILY [facility] Last Admin: 06/16/17 08:51 Dose: 25 mg Insulin Human Regular (Humulin R) 0 units SC ACHS OZ PRN Reason: Protocol Last Admin: 06/16/17 17:36 Dose: 1 units Lisinopril (Zestril) 20 mg PO DAILY [facility] Last Admin: 06/16/17 08:51 Dose: 20 mg Magnesium Citrate (Citrate Of Mag) 300 ml PO ONCE ONE Stop: 06/16/17 20:01 Metformin HCl (Glucophage) 1,000 mg PO BID [facility] Last Admin: 06/16/17 16:35 Dose: 1,000 mg Pantoprazole Sodium (Protonix Inj) 40 mg IVP DAILY [facility] Pravastatin Sodium (Pravachol) 20 mg PO DAILY [facility] Last Admin: 06/16/17 13:13 Dose: 20 mg - Labs Labs: 06/16/17 07:00 06/14/17 14:46 PT 12.9 Seconds (9.8-13.1) D 06/15/17 10:00 INR 1.2 (0.9-1.2) D 06/15/17 10:00 APTT 27.2 Seconds (25.6-37.1) D 06/15/17 10:00 - Head Exam Head Exam: ATRAUMATIC - Eye Exam Eye Exam: Normal appearance Pupil Exam: PERRL - ENT Exam ENT Exam: Mucous Membranes Moist - Neck Exam Neck Exam: Full ROM - Respiratory Exam Respiratory Exam: Clear to Ausculation Bilateral - Cardiovascular Exam Cardiovascular Exam: +S1, +S2 - GI/Abdominal Exam GI & Abdominal Exam: Normal Bowel Sounds Assessment and Plan (1) GI bleed Assessment & Plan: Currently no active bleeding. colonoscopy tomorrow to r/o hemorrhoids, diverticulosis, polyp, AVM etc. Status: Acute
[2017-06-16] MEDS ORDERED: Lactated Ringer's 1,000 ML IV SCH (23:00)
[2017-06-17 05:54] LABS: HEMOGLOBIN 9.1 g/dL (12.0-16.0); MEAN CELL VOLUME 84.2 fl (81.0-99.0); MEAN CORPUSCULAR HGB CONC 33.3 g/dL (33.0-37.0); RBC 3.26 Mil/uL (3.80-5.20); RED CELL DISTRIBUTION WIDTH 14.1 % (11.5-14.5); WHITE BLOOD COUNT 9.7 K/uL (4.8-10.8)
[2017-06-17 06:39] LABS: BLOOD UREA NITROGEN 12 mg/dl (7-17); GFR AFRICAN-AMERICAN > 60; GFR NON-AFRICAN AMERICAN 55
[2017-06-17 06:40] LABS: CALCIUM 9.3 mg/dL (8.4-10.2)
[2017-06-17] MEDS: Insulin Regular 100 units/ml SC SCH ×3 (06:50→21:37)
[2017-06-17] MEDS: Pravastatin Sodium 20 MG TAB PO SCH (09:52)
--- NOTE | 2017-06-17 10:42 | CP.PCM.PN ---
Subjective - Date & Time of Evaluation Date of Evaluation: 06/17/17 Time of Evaluation: 08:00 - Subjective Subjective: Pt seen in am. Seen sitting up in bed, comfortable. No complaints. No new episodes of rectal bleeding. Loose stools. Family at bedside. Plan discussed. Pt has been NPO since midnight. For Colonoscopy today. Objective - Vital Signs/Intake and Output Vital Signs (last 24 hours): Temp Pulse Resp BP Pulse Ox 98.0 F 80 20 185/69 H 100 06/17/17 08:28 06/17/17 10:00 06/17/17 08:28 06/17/17 10:00 06/17/17 08:28 - Medications Medications: Current Medications Amlodipine Besylate (Norvasc) 10 mg PO DAILY [facility] Last Admin: 06/17/17 10:00 Dose: 10 mg Dextrose (Dextrose 50% Inj) 0 ml IV STAT PRN; Protocol PRN Reason: Hypoglycemia Protocol Dextrose (Glutose 15) 0 gm PO ONCE PRN; Protocol PRN Reason: Hypoglycemia Protocol Glipizide (Glucotrol) 5 mg PO DAILY [facility] Last Admin: 06/17/17 09:52 Dose: Not Given Glucagon (Glucagen Diagnostic Kit) 0 mg IM STAT PRN; Protocol PRN Reason: Hypoglycemia Protocol Hydrochlorothiazide (Hydrodiuril) 25 mg PO DAILY [facility] Last Admin: 06/17/17 09:59 Dose: 25 mg Potassium Chloride/Sodium Chloride (Potassium Chl 20 Meq In Ns) 1,000 mls @ 50 mls/hr IV .Q20H [facility] Stop: 06/18/17 10:37 Insulin Human Regular (Humulin R) 0 units SC ACHS OZ PRN Reason: Protocol Last Admin: 06/17/17 06:50 Dose: Not Given Lisinopril (Zestril) 20 mg PO DAILY [facility] Last Admin: 06/17/17 09:59 Dose: 20 mg Metformin HCl (Glucophage) 1,000 mg PO BID [facility] Last Admin: 06/17/17 09:52 Dose: Not Given Pantoprazole Sodium (Protonix Inj) 40 mg IVP DAILY [facility] Last Admin: 06/17/17 09:59 Dose: 40 mg Pravastatin Sodium (Pravachol) 20 mg PO DAILY [facility] Last Admin: 06/17/17 09:52 Dose: Not Given - Labs Labs: 06/17/17 04:20 06/17/17 04:20 PT 12.9 Seconds (9.8-13.1) D 06/15/17 10:00 INR 1.2 (0.9-1.2) D 06/15/17 10:00 APTT 27.2 Seconds (25.6-37.1) D 06/15/17 10:00 - Constitutional Appears: Well, Non-toxic, No Acute Distress - Head Exam Head Exam: NORMAL INSPECTION - Eye Exam Eye Exam: Normal appearance - ENT Exam ENT Exam: Mucous Membranes Moist - Respiratory Exam Respiratory Exam: Clear to Ausculation Bilateral. absent: Rales, Wheezes - Cardiovascular Exam Cardiovascular Exam: REGULAR RHYTHM, +S1, +S2. absent: Murmur - GI/Abdominal Exam GI & Abdominal Exam: Soft. absent: Distended, Tenderness - Extremities Exam Extremities Exam: absent: Pedal Edema - Neurological Exam Neurological Exam: Alert, Awake, Oriented x3 - Psychiatric Exam Psychiatric exam: Normal Affect - Skin Skin Exam: Normal Color Assessment and Plan - Assessment and Plan (Free Text) Assessment: Assessment: 71 yo F with PMHx of DM2, HTN, A-fib, hemorrhoids; recently started on Xarelto, admitted with active rectal bleed associated with diarrhea. For Colonoscopy today. Plan: #Rectal Bleed - Hemoglobin 9.8 today, BP stable -Hemorroids vs diverticulosis vs Colorectal carcinoma - GI Consult - Dr. Sue - Type and screen, consented for blood transfusion - Protonix - 40 mg IVPB Q5 -Plan for colonoscopy today. Bowel prep completed last night. #Atrial Fibrillation -EKG normal sinus rhythm in ED -Echo wnl 12/2017 -Will call windows infrastructure engineer today regarding pt's oral anticoagulant therapy given GI bleed. #Hypertension -BP elevated: 180's this morning prior to administrations of BP meds. Normotensive after. - Continue with home meds - Monitor BP #Diabetes Mellitus - Continue with home meds - Hypoglycemia protocol and insulin coverage scale - Diabetic diet #DVT prophylaxis -SCD -No lonenox given active GI bleed #NPO -Fluid: NS + 20KCL
[2017-06-17] MEDS ORDERED: Lactated Ringer's 500 ML IV ONE (11:52)
[2017-06-17] MEDS ORDERED: Propofol 10 mg/ml Inj (20 ML) ONE (12:52)
[2017-06-17] MEDS ORDERED: Midazolam 2 MG/2 ML VIAL ONE (12:52)
[2017-06-17] MEDS ORDERED: Lidocaine PF 2% (5 ml) Inj (For Cardiac Arrhy) IV ONE (12:52)
--- NOTE | 2017-06-17 14:08 | PQF GENQUE ---
Dr. Rushing, Please clarify the type of anemia: if known after the work up is completed:i.e. Blood loss anemia, acute Blood loss anemia, chronic Chronic anemia Deficiency anemia (please specify type) Due to/in/with antineoplastic chemotherapy Due to/in/with chronic kidney disease Due to/in/with kidney failure Due to/in/with neoplastic disease Iron deficiency anemia Macrocytic anemia Microcytic anemia Normocytic anemia Postoperative blood loss anemia Pernicious anemia Other anemia (please specify) Clinically unable to determine Unknown RBC:3.42->3.50->3.46->3.26 H/H: 9.5/28.9->9.6/29.9->9.8/29.1->9.1/27.4 06/14 Stool OB: Negative H and P;hx. of Hemorrhoids and Afibb recently started Zyrelto and 2 weeks ago presenting to ED with active rectal bleed associated with diarrhea, admitted for observation. #Rectal Bleed -Hemoglobin 9 (11.8 in 01/2018) -Orthostatics: -GI Consult -Type and Screen, Consented for blood -GI consulted -F/u cbc in the am #Afibb -EKG normal sinus rythm in ED -Echo wnl 12/2017 #HTN -normotensive -c/w home meds #DM -c/w home meds Addendum : HX confirmed + symptomatic anemia Dtr at bedside Blood noted in pad GI consult: 06/15 GI consult: Assess:GI bleeding while on anticoagulants. Most likely lower GI tract origin because bright blood seen and patient not hypotensive. Colonoscopy Saturday to evaluate cause of bleed. Ddx includes hemorrhoids, diverticulosis, polyp and AVM This form is a permanent part of the medical record Clarification of your documentation is requested to better reflect the severity of illness and intensity of treatment of your patient. Indicators present [] Specify: [] [] Specify: [] [] Specify: [] [] Specify: [] Location in the medical record that reflects the above clinical findings: [] Treatment Provided: [] PHYSICIAN'S RESPONSE Based on your medical judgment of the clinical indicators outlined above please clarify the following: [] Practitioner response [] If unable to determine, please check the box, sign and date. Present On Admission (POA) Indicator: [] Present at the time of admission [] Not present at the time of admission [] Clinically Undetermined In responding to this query, please exercise your independent professional judgment. The fact that a question is asked does not imply that any particular answer is desired or expected. Thank you for your clarification on this documentation. If you have any questions please call. * Thank you, Halie Stewart RN ext. #[phone] MTDD
--- NOTE | 2017-06-17 14:15 | PQF GENQUE ---
Dr. Rushing, 2 queries: 1. Please provide a nutritional diagnosis, if known, related to the information below: i.e. Morbid Obesity etc. BMI:45.7 5ft 2in is listed in the EMR 2. If in agreement please list the BMI in your progress note OR: Disagree OR: Other explanation of clinical finding This form is a permanent part of the medical record Clarification of your documentation is requested to better reflect the severity of illness and intensity of treatment of your patient. Indicators present [] Specify: [] [] Specify: [] [] Specify: [] [] Specify: [] Location in the medical record that reflects the above clinical findings: [] Treatment Provided: [] PHYSICIAN'S RESPONSE Based on your medical judgment of the clinical indicators outlined above please clarify the following: [] Practitioner response [] If unable to determine, please check the box, sign and date. Present On Admission (POA) Indicator: [] Present at the time of admission [] Not present at the time of admission [] Clinically Undetermined In responding to this query, please exercise your independent professional judgment. The fact that a question is asked does not imply that any particular answer is desired or expected. Thank you for your clarification on this documentation. If you have any questions please call. * Thank you, Halie Stewart RN ext. #[phone] MTDD
--- NOTE | 2017-06-17 14:27 | PQF GENQUE ---
Dr. Rushing, Please clarify the type of atrial fibrillation:if known >> Chronic >> Paroxysmal >> Permanent >> Persistent >> Other (please specify type) >> Clinically unable to determine >> Unknown H and P; PMH includes: Afib recently started Zyrelto (2 weeks ago) presents to ED with rectal bleed associated with diarrhea x 5 days. --#Afibb -EKG normal sinus rythm in ED -Echo wnl 12/2017 This form is a permanent part of the medical record Clarification of your documentation is requested to better reflect the severity of illness and intensity of treatment of your patient. Indicators present [] Specify: [] [] Specify: [] [] Specify: [] [] Specify: [] Location in the medical record that reflects the above clinical findings: [] Treatment Provided: [] PHYSICIAN'S RESPONSE Based on your medical judgment of the clinical indicators outlined above please clarify the following: [] Practitioner response [] If unable to determine, please check the box, sign and date. Present On Admission (POA) Indicator: [] Present at the time of admission [] Not present at the time of admission [] Clinically Undetermined In responding to this query, please exercise your independent professional judgment. The fact that a question is asked does not imply that any particular answer is desired or expected. Thank you for your clarification on this documentation. If you have any questions please call. * Thank you, Halie Stewart RN ext. #[phone] MTDD
--- NOTE | 2017-06-17 14:33 | PQF GENQUE ---
Dr. Rushing, Etiology of Melena? if known after the work up is completed OR: Unable to determine OR: Other explanation of diagnostic finding H and P: hx. of Hemorrhoids and Afibb recently started Zyrelto and 2 weeks ago presenting to ED with active rectal bleed associated with diarrhea, admitted for observation. #Rectal Bleed -Hemoglobin 9 (11.8 in 01/2018) -Orthostatics: -GI Consult -Type and Screen, Consented for blood -GI consulted -F/u cbc in the am #Afibb -EKG normal sinus rythm in ED -Echo wnl 12/2017 #HTN -normotensive -c/w home meds #DM -c/w home meds Addendum : Hx. confirmed + symptomatic anemia Dtr at bedside Blood noted in pad 06/15 GI consult: Assessment :GI bleeding while on anticoagulants. Most likely lower GI tract origin because bright blood seen and patient not hypotensive. Colonoscopy Saturday to evaluate cause of bleed. Ddx includes hemorrhoids, diverticulosis, polyp and AVM.. Status: Acute This form is a permanent part of the medical record Clarification of your documentation is requested to better reflect the severity of illness and intensity of treatment of your patient. Indicators present [] Specify: [] [] Specify: [] [] Specify: [] [] Specify: [] Location in the medical record that reflects the above clinical findings: [] Treatment Provided: [] PHYSICIAN'S RESPONSE Based on your medical judgment of the clinical indicators outlined above please clarify the following: [] Practitioner response [] If unable to determine, please check the box, sign and date. Present On Admission (POA) Indicator: [] Present at the time of admission [] Not present at the time of admission [] Clinically Undetermined In responding to this query, please exercise your independent professional judgment. The fact that a question is asked does not imply that any particular answer is desired or expected. Thank you for your clarification on this documentation. If you have any questions please call. * Thank you, Halie Stewart RN ext. #[phone] MTDD
[2017-06-17] MEDS: Potassium Chl 20 mEq in NS 1,000 ML IV SCH (18:09)
[2017-06-17] MEDS ORDERED: Potassium Chloride 20 mEq ER Tab PO ONE (19:34)
[2017-06-18 00:15] VITALS: RESP 18
[2017-06-18] MEDS: Insulin Regular 100 units/ml SC SCH (08:21)
[2017-06-18] MEDS: Potassium Chl 20 mEq in NS 1,000 ML IV SCH (08:21)
[2017-06-18] MEDS: Pravastatin Sodium 20 MG TAB PO SCH (08:53)
--- NOTE | 2017-06-18 11:21 | CP.PCM.DIS ---
Provider - Provider Date of Admission: 06/15/17 12:01 Attending physician: Diane Rushing MD Primary care physician: None Consults: Gastroenterology: Dr. Sue Time Spent in preparation of Discharge (in minutes): 45 Diagnosis - Discharge Diagnosis (1) GI bleed Status: Acute Comment: 71 year old female w/ PMH hemorrhoids and A Fib seen 06/14 for rectal bleed after starting Xarelto three weeks prior. Placed on Protonix 40 mg IVPB q5 and GI consulted - Dr. Sue. Colonoscopy performed 06/17. Hemmorhoids and small nodule noted. Nodule biopsied and sent to pathology for examination. Patient with no rectal bleed at this time. To be DC home. Will follow up with Dr. Sue for continued care/anticoagulation therapy and monitoring. Hospital Course - Lab Results Lab Results: Most Recent Lab Values WBC 9.7 K/uL (4.8-10.8) 06/17/17 04:20 RBC 3.26 Mil/uL (3.80-5.20) L 06/17/17 04:20 Hgb 9.1 g/dL (12.0-16.0) L 06/17/17 04:20 Hct 27.4 % (34.0-47.0) L 06/17/17 04:20 MCV 84.2 fl (81.0-99.0) 06/17/17 04:20 MCH 28.0 pg (27.0-31.0) 06/17/17 04:20 MCHC 33.3 g/dL (33.0-37.0) 06/17/17 04:20 RDW 14.1 % (11.5-14.5) 06/17/17 04:20 Plt Count 280 K/uL (130-400) 06/17/17 04:20 MPV 8.1 fl (7.2-11.7) 06/14/17 14:46 Neut % (Auto) 68.2 % (50.0-75.0) 06/14/17 14:46 Lymph % (Auto) 24.6 % (20.0-40.0) 06/14/17 14:46 [place] % (Auto) 5.1 % (0.0-10.0) 06/14/17 14:46 Eos % (Auto) 1.5 % (0.0-4.0) 06/14/17 14:46 Baso % (Auto) 0.6 % (0.0-2.0) 06/14/17 14:46 Neut # (Auto) 6.3 K/uL (1.8-7.0) 06/14/17 14:46 Lymph # (Auto) 2.3 K/uL (1.0-4.3) 06/14/17 14:46 [place] # (Auto) 0.5 K/uL (0.0-0.8) 06/14/17 14:46 Eos # (Auto) 0.1 K/uL (0.0-0.7) 06/14/17 14:46 Baso # (Auto) 0.1 K/uL (0.0-0.2) 06/14/17 14:46 PT 12.9 Seconds (9.8-13.1) D 06/15/17 10:00 INR 1.2 (0.9-1.2) D 06/15/17 10:00 APTT 27.2 Seconds (25.6-37.1) D 06/15/17 10:00 Sodium 137 mmol/l (132-148) 06/17/17 04:20 Potassium 3.5 MMOL/L (3.6-5.0) L 06/17/17 04:20 Chloride 98 mmol/L (98-107) 06/17/17 04:20 Carbon Dioxide 28 mmol/L (22-30) 06/17/17 04:20 Anion Gap 15 (10-20) 06/17/17 04:20 BUN 12 mg/dl (7-17) 06/17/17 04:20 Creatinine 1.0 mg/dl (0.7-1.2) 06/17/17 04:20 Est GFR ( Amer) > 60 06/17/17 04:20 Est GFR (Non-Af Amer) 55 06/17/17 04:20 POC Glucose (mg/dL) 176 mg/dL (65-110) H 06/18/17 10:33 Random Glucose 127 mg/dL (65-105) H 06/17/17 04:20 Calcium 9.3 mg/dL (8.4-10.2) 06/17/17 04:20 Total Bilirubin 0.7 mg/dl (0.2-1.3) 06/14/17 14:46 AST 18 U/L (14-36) 06/14/17 14:46 ALT 26 U/L (9-52) 06/14/17 14:46 Alkaline Phosphatase 56 U/L (38-126) 06/14/17 14:46 Total Protein 7.2 G/DL (6.3-8.2) 06/14/17 14:46 Albumin 3.8 g/dL (3.5-5.0) 06/14/17 14:46 Globulin 3.4 gm/dL (2.2-3.9) 06/14/17 14:46 Albumin/Globulin Ratio 1.1 (1.0-2.1) 06/14/17 14:46 Stool Occult Blood Negative (NEGATIVE) 06/14/17 12:20 Hep Bs Antigen Negative (NEGATIVE) 06/15/17 10:00 Hepatitis C Antibody Negative (NEGATIVE) 06/15/17 10:00 Blood Type O POSITIVE 06/14/17 14:30 Blood Type Confirm O POSITIVE 06/14/17 14:51 Antibody Screen Negative 06/14/17 14:30 BBK History Checked No verified bt 06/14/17 14:30 - Hospital Course Hospital Course: 71 year old female with PMH of DM2, HTN, A-fib, hemorrhoids seen for rectal bleed following anticoagulation therapy with Xarelto three weeks prior to admission. Pt consulted by GI - Dr. Sue. Underwent colonoscopy on 06/17 where hemmerhoids and a nodule was appreciated. Nodule was biopsied, results pending. Patient will follow up with Dr. Sue as outpatient for continued anticoagulation therapy. Xarelto held for now. All home medications continued in hospital and to be continued upon discharge. Rx for Colace, Senekot and Feosol transmitted to patient's pharmacy and patient given Rx for CBC. Patient also to f/u at [facility] following DC with Dr. Mejia on 07/09/17 at 11 AM. Patient to be DC home today - Date & Time of H&P Date of H&P: 06/18/17 Time of H&P: 11:28 Discharge Exam - Head Exam Head Exam: ATRAUMATIC, NORMOCEPHALIC - Eye Exam Eye Exam: EOMI, PERRL Pupil Exam: PERRL - ENT Exam ENT Exam: Mucous Membranes Moist - Respiratory Exam Respiratory Exam: NORMAL BREATHING PATTERN - GI/Abdominal Exam GI & Abdominal Exam: absent: Distended, Firm, Guarding, Tenderness - Rectal Exam Rectal Exam: Deferred - Extremities Exam Extremities exam: normal capillary refill - Neurological Exam Neurological exam: Alert, Oriented x3 - Psychiatric Exam Psychiatric exam: Normal Affect, Normal Mood - Skin Skin Exam: Intact, Normal Color, Warm Discharge Plan - Discharge Medications Prescriptions: Docusate Sodium [Colace] 100 mg PO BID PRN #60 capsule PRN Reason: Constipation Ferrous Sulfate [Feosol] 325 mg PO BID #60 tab Sennosides A and B [Senna Concentrate] 8.6 mg PO BID #60 tab - Follow Up Plan Condition: FAIR Disposition: HOME/ ROUTINE Instructions: Gastrointestinal Bleeding Additional Instructions: Follow up with Nursing Officer, Dr. Sue upon discharge for continued care and to determine which anticoagulation medication to be placed on Follow up at [facility] with Dr. Mejia Have CBC performed (prescription placed in chart) All new prescriptions transmitted to patient's pharmacy for pickup Referrals: Adam Sue MD [Staff Provider] - Jean Carlos Mejia MD [Resident] - 07/09/17 11:00 pm
[2017-06-18 11:45] VITALS: BP 123/66; PULSE 73; TEMP 98.3; O2SAT 99
== END 2017-06-18 14:15 | disposition home or self-care (01) | DRG 378 ==
LOC: H.ER 13:08 → H.ERHOLD 16:55 → H.TEL 21:18 → OBSVTOIN 06-15 12:01
PROVIDERS: ADMIT Family Medicine Geriatric Medicine; ATTEND Family Medicine Geriatric Medicine
PROC: 0DBP8ZX Excision of Rectum, Via Natural or Artificial Opening Endoscopic, Diagnostic (ICD-10-PCS; principal; 2017-06-17 15:15)
DX: K92.1 Melena (principal); D68.32 Hemorrhagic disorder due to extrinsic circulating anticoagulants; Z68.42 Body mass index [BMI] 45.0-49.9, adult; T45.515A Adverse effect of anticoagulants, initial encounter; I48.2 Chronic atrial fibrillation; K64.8 Other hemorrhoids; D12.8 Benign neoplasm of rectum; D64.89 Other specified anemias; E66.01 Morbid (severe) obesity due to excess calories; E11.9 Type 2 diabetes mellitus without complications; I10 Essential (primary) hypertension; E78.00 Pure hypercholesterolemia, unspecified; E78.5 Hyperlipidemia, unspecified; Z79.01 Long term (current) use of anticoagulants; Z87.891 Personal history of nicotine dependence; Y92.009 Unspecified place in unspecified non-institutional (private) residence as the place of occurrence of the external cause